=== PATIENT | female | born 1990 | race Caucasian/White ===

== ENCOUNTER 2018-02-26 17:21 | Emergency (ER) | payer MEDICAID ==
[~2018-02-26] VITALS: Ht 157.5 cm; Wt 95.5 kg
[2018-02-26 17:28] VITALS: Ht 157.5 cm; Wt 95.5 kg
[2018-02-26] MEDS ORDERED: MEDROL DOSE PACK4 MG PO (18:36)
[2018-02-26 19:41] VITALS: BP 128/72
== END 2018-02-26 19:42 | disposition home or self-care (01) ==
LOC: D.ER 17:21
DX: L25.9 Unspecified contact dermatitis, unspecified cause (principal); F17.200 Nicotine dependence, unspecified, uncomplicated